=== PATIENT | female | born 1945 | race Caucasian/White ===

== ENCOUNTER 2018-10-28 18:55 | Inpatient (IN) | payer OTHER, MEDICARE ==
[~2018-10-28] VITALS: Ht 182.9 cm; Wt 131.5 kg
[2018-10-28] MEDS ORDERED: NACL 0.9% 1,000 ML IV ONE (18:59)
[2018-10-28] MEDS ORDERED: KETOROLAC TROMETHAMINE 30 MG VIAL IVP ONE (19:00)
[2018-10-28 19:09] VITALS: BP_SYST 139
[2018-10-28] MEDS ORDERED: ALBUTEROL SULFATE 0.083% 2.5 MG/3 ML VIAL.NEB IH ONE (19:15)
[2018-10-28] MEDS ORDERED: methylPREDNISolone SOD SUCC/PF 62.5 MG/ML VIAL IVP ONE (19:15)
[2018-10-28] MEDS ORDERED: cefTRIAXone 1 GM IVPB PREMIX 50 ML IV ONE (19:15)
[2018-10-28] MEDS ORDERED: IPRATROPIUM BROM 0.5 MG/2.5 ML VIAL.NEB (ATROVENT) IH ONE (19:15)
[2018-10-28] MEDS ORDERED: AMLO5TAB4 PO (19:27)
[2018-10-28 19:29] LABS: BASOPHILS % (AUTO) 0.5 % (0.0-2.0); EOSINOPHILS # (AUTO) 0.3 K/uL (0.0-0.4); EOSINOPHILS % (AUTO) 4.2 % (0.0-4.0); HEMATOCRIT 34.7 % (36-48); HEMOGLOBIN 11.6 g/dL (12.0-16.0); LYMPHOCYTES # (AUTO) 0.8 K/uL (1.0-5.5); LYMPHOCYTES % (AUTO) 10.9 % (20.5-51.5); MEAN CORPUSCULAR HEMOGLOBIN 31 pg (27-31); MEAN CORPUSCULAR HGB CONC 34 % (32-36); MEAN CORPUSCULAR VOLUME 92 fL (79.0-98.0); MONOCYTES # (AUTO) 0.9 K/uL (0.0-1.0); MONOCYTES % (AUTO) 12.5 % (1.7-9.3); NEUTROPHILS # (AUTO) 5.2 K/uL (1.8-7.7); NEUTROPHILS % (AUTO) 71.9 % (40.0-70.0); PLATELET COUNT (AUTO) 298 K/uL (130-430); RED BLOOD CELL COUNT(AUTO) 3.79 MIL/uL (4.2-6.2); RED CELL DISTRIBUTION WIDTH 14.4 % (9.0-15.0); WHITE BLOOD COUNT (AUTO) 7.2 K/uL (4.8-10.8)
[2018-10-28] MEDS ORDERED: IRBE300T40 PO (19:32)
[2018-10-28] MEDS ORDERED: METF750T PO (19:32)
[2018-10-28] MEDS ORDERED: TURM1CAP2 PO (19:32)
[2018-10-28] MEDS ORDERED: CALC-995 PO (19:32)
[2018-10-28] MEDS ORDERED: POTA10TA15 PO (19:32)
[2018-10-28] MEDS ORDERED: METO50TA7 PO (19:32)
[2018-10-28] MEDS ORDERED: FURO-149 PO (19:32)
[2018-10-28] MEDS ORDERED: APIX5TAB PO (19:32)
[2018-10-28 19:34] LABS: BILIRUBIN,URINE NEGATIVE (NEGATIVE); BLOOD, URINE 2+ (NEGATIVE); CLARITY/URINE CLEAR (CLEAR); COLOR,URINE YELLOW (YELLOW); GLUCOSE,URINE NEGATIVE (NEGATIVE); KETONES,URINE NEGATIVE (NEGATIVE); LEUKOCYTE ESTERASE ,URINE 2+ (NEGATIVE); NITRITE, URINE POSITIVE (NEGATIVE); PH,URINE 5.5 (5.0-8.0); PROTEIN URINE NEGATIVE (NEGATIVE); UROBILINOGEN,URINE 0.2 (0.2-1.0)
[2018-10-28 19:35] LABS: ANION GAP 7 (5-15); CALCIUM 9.5 mg/dL (8.4-11.0); CHLORIDE 107 mmol/L (98-107); CREATININE 0.92 mg/dL (0.55-1.30); GLUCOSE 104 mg/dL (70-99); POTASSIUM 4.3 mmol/L (3.5-5.1); SODIUM SERUM 141 mmol/L (136-145); UREA NITROGEN, BLOOD 18 mg/dL (8-21)
[2018-10-28 19:38] LABS: INR 1.1 (0.8-1.2); PROTHROMBIN TIME 10.8 SECS (9.5-12.5)
[2018-10-28 19:39] LABS: ALANINE AMINOTRANSFERASE 52 U/L (12-78); ALBUMIN 3.6 g/dL (3.4-4.8); AMYLASE 40 U/L (0-100); ASPARTATE AMINOTRANSFERASE 38 U/L (10-37); LIPASE 240 U/L (73-393); TOTAL BILIRUBIN 0.6 mg/dL (0.0-1.0)
[2018-10-28 20:25] LABS: BACTERIA,URINE MODERATE /HPF (None Seen)
[2018-10-28] MEDS ORDERED: DILTIAZEM HCL 25 MG/5 ML VIAL IVP PRN (20:45)
[2018-10-28] MEDS ORDERED: LEVOFLOXACIN 500 MG/D5W 100 ML IV ONE ×3 (20:45→22:17)
[2018-10-28 21:08] VITALS: BP_SYST 148
[2018-10-28] MEDS ORDERED: IPRATROPIUM/ALBUTEROL SULFATE 3 ML AMPUL.NEB (DUONEB) INH PRN (22:30)
[2018-10-28] MEDS ORDERED: DEXTROSE 50% JECT 50 ML DISP.SYRIN IVP PRN (22:30)
[2018-10-28] MEDS ORDERED: ACETAMINOPHEN 325 MG TABLET PO PRN (22:45)
[2018-10-28] MEDS ORDERED: guaiFENesin/DEXTROMETHORPHAN 118 ML PO PRN (22:45)
[2018-10-28] MEDS ORDERED: ZOLPIDEM TARTRATE 5 MG TABLET PO PRN (23:00)
[2018-10-28 23:04] VITALS: BP_SYST 155
[2018-10-29] MEDS ORDERED: APIXABAN 2.5 MG TABLET PO SCH
[2018-10-29] MEDS: LEVOFLOXACIN 500 MG/D5W 100 ML IV SCH ×2 (00:09→23:28)
[2018-10-29 00:13] VITALS: BP_SYST 133
[2018-10-29 06:07] LABS: BASOPHILS % (AUTO) 0.1 % (0.0-2.0); EOSINOPHILS % (AUTO) 0.1 % (0.0-4.0); HEMATOCRIT 32.9 % (36-48); HEMOGLOBIN 10.9 g/dL (12.0-16.0); LYMPHOCYTES # (AUTO) 0.4 K/uL (1.0-5.5); LYMPHOCYTES % (AUTO) 5.6 % (20.5-51.5); MEAN CORPUSCULAR HEMOGLOBIN 31 pg (27-31); MEAN CORPUSCULAR HGB CONC 33 % (32-36); MEAN CORPUSCULAR VOLUME 92 fL (79.0-98.0); MONOCYTES # (AUTO) 0.1 K/uL (0.0-1.0); MONOCYTES % (AUTO) 0.8 % (1.7-9.3); NEUTROPHILS # (AUTO) 6.7 K/uL (1.8-7.7); NEUTROPHILS % (AUTO) 93.4 % (40.0-70.0); PLATELET COUNT (AUTO) 235 K/uL (130-430); RED BLOOD CELL COUNT(AUTO) 3.57 MIL/uL (4.2-6.2); RED CELL DISTRIBUTION WIDTH 14.2 % (9.0-15.0); WHITE BLOOD COUNT (AUTO) 7.2 K/uL (4.8-10.8)
[2018-10-29 08:00] VITALS: BP_SYST 148
[2018-10-29] MEDS: POTASSIUM CHLORIDE 10 MEQ TAB.PRT.SR PO SCH (08:10)
[2018-10-29] MEDS: INSULIN REGULAR, HUMAN 100 UNITS/ML, 10 ML VIAL (novoLIN R) SUBCUT PRN ×2 (08:13→12:05)
[2018-10-29] MEDS: APIXABAN 2.5 MG TABLET PO SCH ×2 (08:13→21:14)
[2018-10-29] MEDS: FUROSEMIDE 40 MG TABLET PO SCH (08:14)
[2018-10-29] MEDS: amLODIPine BESYLATE 5 MG TABLET PO SCH (08:14)
[2018-10-29 08:15] LABS: ANION GAP 16 (5-15); CALCIUM 9.4 mg/dL (8.4-11.0); CHLORIDE 108 mmol/L (98-107); CREATININE 0.96 mg/dL (0.55-1.30); GLUCOSE 190 mg/dL (70-99); POTASSIUM 4.7 mmol/L (3.5-5.1); SODIUM SERUM 144 mmol/L (136-145); UREA NITROGEN, BLOOD 17 mg/dL (8-21)
[2018-10-29] MEDS: METOPROLOL SUCCINATE 50 MG TAB.SR.24H (TOPROL XL) PO SCH (08:16)
[2018-10-29 08:30] LABS: ALANINE AMINOTRANSFERASE 52 U/L (12-78); ALBUMIN 3.5 g/dL (3.4-4.8); ASPARTATE AMINOTRANSFERASE 41 U/L (10-37); FREE T4 (FREE THYROXINE) 1.1 ng/dl (0.8-1.5); THYROID STIMULATING HORMONE 1.11 uIu/mL (0.36-3.74); TOTAL BILIRUBIN 0.6 mg/dL (0.0-1.0)
[2018-10-29 08:46] LABS: CHOLESTEROL 119 mg/dL (<200); HDL CHOLESTEROL 39 mg/dL (>55); LDL CHOLESTEROL 70 mg/dL (<100); TRIGLYCERIDES 51 mg/dL (30-150)
[2018-10-29] MEDS ORDERED: IRBESARTAN 150 MG TABLET (AVAPRO) PO SCH (09:00)
[2018-10-29] MEDS ORDERED: NON-FORMULARY MEDICATION (Calcium Carb & Cit/Vitamin D3 (Calcium + D3 Er Tablet) 1 EACH) PO SCH (09:00)
[2018-10-29] MEDS ORDERED: CALCIUM CARBONATE/VITAMIN D3 1 TAB TABLET PO ONE (10:30)
[2018-10-29] MEDS ORDERED: VALSARTAN 160 MG TABLET (DIOVAN) PO ONE (10:30)
[2018-10-29 12:00] VITALS: BP_SYST 134
[2018-10-29] MEDS ORDERED: LACTOBACILLUS RHAMNOSUS GG 1 CAP CAPSULE PO ONE (12:15)
[2018-10-29 16:00] VITALS: BP_SYST 143
[2018-10-29] MEDS ORDERED: cefTRIAXone 1 GM in D5W 50 ML IV SCH (19:00)
[2018-10-29 19:47] VITALS: BP_SYST 136
[2018-10-29] MEDS: LACTOBACILLUS RHAMNOSUS GG 1 CAP CAPSULE PO SCH (21:04)
[2018-10-30 00:28] VITALS: BP_SYST 136
[2018-10-30 06:41] LABS: ANION GAP 12 (5-15); CALCIUM 9.2 mg/dL (8.4-11.0); CHLORIDE 107 mmol/L (98-107); GLUCOSE 121 mg/dL (70-99); SODIUM SERUM 142 mmol/L (136-145); UREA NITROGEN, BLOOD 21 mg/dL (8-21)
[2018-10-30 06:50] LABS: BASOPHILS % (AUTO) 0.2 % (0.0-2.0); EOSINOPHILS # (AUTO) 0.1 K/uL (0.0-0.4); EOSINOPHILS % (AUTO) 0.6 % (0.0-4.0); HEMATOCRIT 32.7 % (36-48); HEMOGLOBIN 10.5 g/dL (12.0-16.0); LYMPHOCYTES # (AUTO) 0.8 K/uL (1.0-5.5); LYMPHOCYTES % (AUTO) 8.5 % (20.5-51.5); MEAN CORPUSCULAR HEMOGLOBIN 30 pg (27-31); MEAN CORPUSCULAR HGB CONC 32 % (32-36); MEAN CORPUSCULAR VOLUME 93 fL (79.0-98.0); MONOCYTES # (AUTO) 0.7 K/uL (0.0-1.0); MONOCYTES % (AUTO) 7.6 % (1.7-9.3); NEUTROPHILS # (AUTO) 7.7 K/uL (1.8-7.7); NEUTROPHILS % (AUTO) 83.1 % (40.0-70.0); PLATELET COUNT (AUTO) 247 K/uL (130-430); RED BLOOD CELL COUNT(AUTO) 3.51 MIL/uL (4.2-6.2); RED CELL DISTRIBUTION WIDTH 14.1 % (9.0-15.0); WHITE BLOOD COUNT (AUTO) 9.3 K/uL (4.8-10.8)
[2018-10-30 08:19] VITALS: BP_SYST 138
[2018-10-30] MEDS: amLODIPine BESYLATE 5 MG TABLET PO SCH (08:21)
[2018-10-30] MEDS: LACTOBACILLUS RHAMNOSUS GG 1 CAP CAPSULE PO SCH (08:21)
[2018-10-30] MEDS: POTASSIUM CHLORIDE 10 MEQ TAB.PRT.SR PO SCH (08:21)
[2018-10-30] MEDS: FUROSEMIDE 40 MG TABLET PO SCH (08:22)
[2018-10-30] MEDS: METOPROLOL SUCCINATE 50 MG TAB.SR.24H (TOPROL XL) PO SCH (08:22)
[2018-10-30] MEDS: APIXABAN 2.5 MG TABLET PO SCH (08:27)
[2018-10-30] MEDS ORDERED: CALCIUM CARBONATE/VITAMIN D3 1 TAB TABLET PO SCH (09:00)
[2018-10-30] MEDS ORDERED: VALSARTAN 160 MG TABLET (DIOVAN) PO SCH (09:00)
[2018-10-30 11:08] VITALS: BP_SYST 132
[2018-10-30] MEDS ORDERED: cefTRIAXone 1 GM in D5W 50 ML IV SCH (16:00)
[2018-10-30 16:06] VITALS: BP_SYST 134
[2018-10-30 16:22] VITALS: BP_SYST 134
[2018-10-30] MEDS ORDERED: LEVO250T2 PO (16:29)
[2018-10-30] MEDS ORDERED: GUAI5SYR PO (16:31)
[2018-10-30] MEDS ORDERED: L.RH1CAP PO (16:31)
== END 2018-10-30 18:10 | DRG 193 ==
LOC: SED 18:55 → STU 20:40
PROVIDERS: ADMIT Internal Medicine; ATTEND Internal Medicine
DX: J18.1 Lobar pneumonia, unspecified organism (principal); J96.00 Acute respiratory failure, unspecified whether with hypoxia or hypercapnia; I50.32 Chronic diastolic (congestive) heart failure; D68.69 Other thrombophilia; N39.0 Urinary tract infection, site not specified; E11.9 Type 2 diabetes mellitus without complications; E66.01 Morbid (severe) obesity due to excess calories; I48.2 Chronic atrial fibrillation; I11.0 Hypertensive heart disease with heart failure; D64.9 Anemia, unspecified; G47.33 Obstructive sleep apnea (adult) (pediatric); Z96.652 Presence of left artificial knee joint; Z68.39 Body mass index [BMI] 39.0-39.9, adult; Z79.899 Other long term (current) drug therapy
CPT/HCPCS: 36415; 71045; 71046-TC; 80048; 80053; 80061; 81000-TC; 82150-TC; 82550-TC; 82803-TC; 82962; 83605; 83690-TC; 83735-TC; 84439; 84443-TC; 84484; 85025; 85610-TC; 85730-TC; 87040-TC; 87070-TC; 87086; 87186-TC; 87205-TC; 93005; 93306; 94640; 94760; 96365; 96375; 99285; G0378; J0696; J1815; J1885; J1956; J2930; J7030; J7060; J7613